=== PATIENT | female | born 1990 | race Two or more races ===

== ENCOUNTER 2024-12-22 17:45 | Emergency (ER) | payer MEDICAID, OTHER ==
[~2024-12-22] VITALS: Ht 167.6 cm; Wt 57.6 kg
[2024-12-22] MEDS: IPRATROPIUM BROM 0.5 MG/2.5ML INH SOL NEB ONE (18:27)
[2024-12-22] MEDS: ALBUTEROL SULF 2.5 MG/0.5ML(0.5%) NEB SOLN NEB ONE (18:27)
[2024-12-22 18:31] VITALS: BP 119/79; PULSE 84; RESP 15; TEMP 98.9; O2SAT 97
--- NOTE | 2024-12-22 18:31 | ED.PDOC ---
SOB-HPI HPI Comments Pt presents to the ER with C/O asthma. Pt states she was at a pet store and began to have an asthma attack. Pt denies use of resuce inhaler, pt lung sounds clear bilaterally, SPO2 100% on RA. Pt states tightness in her chest. Denies twyla or sob Chief Complaint: Asthma Time Seen by MD: 17:56 Reviewed notes: Nurses Notes, Medications, Allergies Information Source: Patient Mode of Arrival: Ambulatory All Other Systems: Reviewed and Negative (see hpi) Physical Exam General Appearance: No Apparent Distress, Normal HEENT: Normal ENT Inspection, Pharynx Normal, TMs Normal Neck: Full Range of Motion, Non-Tender Respiratory: No Accessory Muscle Use, No Respiratory Distress, Wheezing Cardiovascular: No Edema, No JVD, No Murmur, No Gallop, Normal Peripheral Pulses, Regular Rate/Rhythm Breast Exam: Deferred Gastrointestinal: No Organomegaly, Non Tender, No Pulsatile Mass, Normal Bowel Sounds, Soft Genitalia: Deferred Pelvic: Deferred Rectal: Deferred Extremities: Normal range of motion, No pedal edema Musculoskeletal : Apperance: Normal Neurologic: Alert, No Motor Deficits, Normal Affect, Normal Mood, No Sensory Deficits Cerebellar Function: Normal Reflexes: NOT DONE Skin: Dry, Normal Color, Warm Lymphatic: No Adenopathy Was a procedure done? Was a procedure done?: No Differential Dx Differential Diagnosis: Anxiety, Asthma, Bronchitis, Pneumonia, Pneumothorax X-Ray, Labs, Meds, VS Vital Signs Date Time Temp Pulse Resp B/P (MAP) Pulse Ox O2 Delivery O2 Flow Rate FiO2 12/22/24 18:31 98.9 84 15 119/79 (92) 97 98.9 12/22/24 18:27 16 98 Room Air* 0 21 12/22/24 17:46 98.9 100 17 118/77 84 98.9 Current Medications Medications (Trade) Dose Ordered Sig/Kris Route Start Time Stop Time Status Last Admin Albuterol (Ventolin Medneb) 2.5 mg ONCE ONCE NEB 12/22/24 18:15 12/22/24 18:16 DC 12/22/24 18:27 Ipratropium [facility] (Atrovent Medneb) 0.5 mg ONCE ONCE NEB 12/22/24 18:15 12/22/24 18:16 DC 12/22/24 18:27 Dexamethasone Sodium Phosphate (Decadron Injection) 10 mg ONCE ONCE IM 12/22/24 18:15 12/22/24 18:16 DC 12/22/24 18:17 X-Ray, Labs, Meds, VS Comment Lung sounds clear and equal bilateral after breathing treatment and Decadron 10 mg IM patient requesting discharge at this time states she feels better. Script refill of her albuterol inhaler. Advised to rest increase p.o. fluids with electrolytes follow up with your PCP as needed ER return precautions given patient indicates understanding agrees with discharge plan of care. Time of 1ST Reevaluation: 18:00 Reevaluation 1ST: Unchanged Time of 2ND Reevaluation: 18:53 Reevaluation 2ND: Improved Patient Education/Counseling: Diagnosis, Treatment, Need For Follow Up Family Education/Counseling: No Family Present SEPSIS Sepsis Screen Date sepsis recognized/suspect: Dec 22, 2024 Time Sepsis recognized/suspect: 1745 Recent Procedure: No On Antibiotic Therapy: No Respiratory Rate >20: No Heart Rate >90: No Temp<36 C (96.8 F) or >38.3 C: No SBP <90 or MAP <65 mmHG: No New Acute Mental Status Change: No Is the patient on CPAP, BIPAP,: No Physician Orders Med Neb Initial Treatment (12/22/24 18:10) Vital Signs Date Time Temp Pulse Resp B/P (MAP) Pulse Ox O2 Delivery O2 Flow Rate FiO2 12/22/24 18:31 98.9 84 15 119/79 (92) 97 98.9 12/22/24 18:27 16 98 Room Air* 0 21 12/22/24 17:46 98.9 100 17 118/77 84 98.9 Medications Medications Dose Ordered Sig/Kris Route Start Time Stop Time Status Last Admin Dose Admin Albuterol 2.5 mg ONCE ONCE NEB 12/22/24 18:15 12/22/24 18:16 DC 12/22/24 18:27 Dexamethasone Sodium Phosphate 10 mg ONCE ONCE IM 12/22/24 18:15 12/22/24 18:16 DC 12/22/24 18:17 Ipratropium [facility] 0.5 mg ONCE ONCE NEB 12/22/24 18:15 12/22/24 18:16 DC 12/22/24 18:27 Departure 1 Departure Time of Disposition: 18:53 Impression: Primary Impression: Acute asthma Disposition: 01 HOME / SELF CARE / HOMELESS Condition: Stable e-Prescriptions Albuterol Sulfate (VENTOLIN MDI) 90 Mcg Ih 180 MCG IN Q6HP PRN for 30 Days, #1 INHALER Prov: MIRELLA BLOOM 12/22/24 Discharged With: Self Critical Care Note Critical Care Time?: No Stability Stability form required: No Heart Score Heart Score: Heart Score Response (Comments) Value History N/A 0 EKG N/A 0 Age <45 0 Risk Factors N/A 0 Troponin N/A 0 Total 0 MIRELLA BLOOM Dec 22, 2024 18:31
[2024-12-22] MEDS ORDERED: ALBUAER3 IN (18:54)
== END 2024-12-22 18:57 | disposition home or self-care (01) ==
LOC: ER 17:45
DX: J45.909 Unspecified asthma, uncomplicated (principal)
CPT/HCPCS: 94640; 96372; 99283; J1100